=== PATIENT | male | born 1950 | race Caucasian/White ===

== ENCOUNTER 2022-04-29 07:07 | Day surgery (SDC) | payer MEDICARE, BC, SELFPAY ==
[2022-04-25 10:12] VITALS: BMI 22.4
[2022-04-29 07:37] VITALS: BP 117/69; PULSE 92; RESP 20; TEMP 36.9; O2SAT 99
--- NOTE | 2022-04-29 07:45 | ANES.PREANE2 ---
Pre-Anesthetic Assessment Height/Weight: Height 1.68 m Weight 63.049 kg Temp Pulse Resp BP Pulse Ox 98.5 F 92 20 H 117/69 99 04/29/22 07:37 04/29/22 07:37 04/29/22 07:37 04/29/22 07:37 04/29/22 07:37 Preop Diagnosis: h/o polyps Operation Date: 04/29/22 08:45 Proposed Procedures p Colonoscopy 01926,Z86.010(Not Applicable) - Joseph Howard MD Familial anesthetic complications: None Was Beta Viktor taken within 24 hours: N/A Was Clonidine taken within 24 hours: N/A Last intake: Intake Last Liquid Date 04/28/22 Last Liquid Time 20:00 Last Solid Date 04/27/22 Last Solid Time 18:00 Social No alcohol and No tobacco Exam alert, oriented x 3, clear to auscultation bilaterally and regular rate & rhythm diminished b/'l Airway Mallampati: Class II Dentition: full Pulmonary Chronic Obstructive Pulmonary Disease (2 L NC continously (stage IV per patient)) CV/HEM Hypertension None reported Hepatic None reported GI nausea last night, dry heaving - feels ok today Metabolic None reported Musc/skel None reported Neuropsych None reported Anesthetic Plan ASA status: 4 Risk of > 500 ml blood loss (7ml/kg in children): No Medications/Allergies Home Medications Medication Instructions Recorded Confirmed Last Taken Type acetylcysteine 200 mg/mL (20 %) 3 ml INHALATION Q4H 03/29/22 04/29/22 Unknown History solution albuterol sulfate 90 mcg/actuation 2 puff INHALATION QID 03/29/22 04/29/22 04/28/22 History aerosol inhaler (Ventolin HFA) fluticasone 500 mcg-salmeterol 50 1 inh INHALATION BID 03/29/22 04/29/22 04/29/22 History mcg/dose blistr powdr for inhalation (Advair Diskus) hydrochlorothiazide 25 mg tablet 25 mg PO DAILY 03/29/22 04/29/22 04/28/22 History lactulose 10 gram/15 mL oral 15 ml PO DAILY 03/29/22 04/29/22 04/27/22 History solution pravastatin 40 mg tablet 40 mg PO DAILY 03/29/22 04/29/22 04/28/22 History sertraline 50 mg tablet 50 mg PO DAILY 03/29/22 04/29/22 Unknown History guaifenesin 1,200 mg tablet, 1,200 mg PO Q12H 04/15/22 04/29/22 04/28/22 History extended release 12 hr (Mucinex) Allergies Allergy/AdvReac Type Severity Reaction Status Date / Time No Known Allergies Allergy Unverified 04/29/22 07:31 [facility] Anesthesia Medical History (Updated 04/15/22 @ 14:19 by Joseph Howard MD) COPD (chronic obstructive pulmonary disease) Essential hypertension Family History Mother No problems noted. Social History Smoking and tobacco status: former smoker Alcohol intake: never Data Anesthesia Cardiac Studies: No Data to Display
[2022-04-29] MEDS: sodium chloride 0.9% 1,000 ML 30 ML IV (07:50)
--- NOTE | 2022-04-29 08:08 | P.HP_ITS ---
Same Day Surgery H&P Indication for Procedure/HPI DATE OF PROCEDURE: April 29, 2022 CHIEF COMPLAINT/INDICATIONFOR SURGICAL PROCEDURE: Screening PREOP DIAGNOSIS: h/o polyps PLANNED PROCEDURE: Operation Date: 04/29/22 08:45 Proposed Procedures p Colonoscopy 46687,Z86.010(Not Applicable) - Joseph Howard MD Medications/Allergies* Home Medications Medication Instructions Recorded Confirmed Type acetylcysteine 200 mg/mL (20 %) 3 ml INHALATION Q4H 03/29/22 04/29/22 History solution albuterol sulfate 90 mcg/actuation 2 puff INHALATION QID 03/29/22 04/29/22 History aerosol inhaler (Ventolin HFA) fluticasone 500 mcg-salmeterol 50 1 inh INHALATION BID 03/29/22 04/29/22 History mcg/dose blistr powdr for inhalation (Advair Diskus) hydrochlorothiazide 25 mg tablet 25 mg PO DAILY 03/29/22 04/29/22 History lactulose 10 gram/15 mL oral 15 ml PO DAILY 03/29/22 04/29/22 History solution pravastatin 40 mg tablet 40 mg PO DAILY 03/29/22 04/29/22 History sertraline 50 mg tablet 50 mg PO DAILY 03/29/22 04/29/22 History guaifenesin 1,200 mg tablet, 1,200 mg PO Q12H 04/15/22 04/29/22 History extended release 12 hr (Mucinex) Allergies/Adverse Reactions Allergy/AdvReac Type Severity Reaction Status Date / Time No Known Allergies Allergy Unverified 04/29/22 07:31 Current Medications: Generic Name Dose Route Start Last Admin Trade Name Jeancarlosq PRN Reason Stop Dose Admin Sodium Chloride 1,000 mls @ 30 mls/hr 04/29/22 07:45 04/29/22 07:50 Sodium Chloride 0.9% IV 30 mls/hr .Q24H ADEN Administration Pertinent History/Comorbid Conditions* Medical History (Updated 04/15/22 @ 14:19 by Joseph Howard MD) COPD (chronic obstructive pulmonary disease) Essential hypertension Social History Smoking and tobacco status: former smoker Alcohol intake: never Pertinent Exam Findings alert, oriented x 3, clear to auscultation bilaterally, regular rate & rhythm, operative site marked and procedure specific exam findings Recommendations Surgery/Procedure today Coding Level of Care Code Acute [employer] for [employer]iju
[2022-04-29 09:19] VITALS: BP 95/63; PULSE 72; RESP 16; TEMP 36.6; O2SAT 100
[2022-04-29 09:27] VITALS: BP 101/64; PULSE 77; RESP 16; O2SAT 98
--- NOTE | 2022-04-29 14:08 | ANE.PACU2 ---
Inpatient post-anesthesia follow up: Airway intact: Yes Vital signs: Temperature 97.9 F Pulse Rate 77 Respiratory Rate 16 Blood Pressure 101/64 Pulse Oximetry 98 Oxygen Delivery Me thod Nasal Cannula Oxygen Flow Rate 2 Fraction of Inspir ed Oxygen Hydration adequate: Yes Nausea and vomiting: No Pain level: 1 Mental status: Baseline
== END 2022-04-29 09:53 | disposition home or self-care (01) ==
PROVIDERS: PCP Family Medicine; Visit Provider Internal Medicine
PROC: 0DJD8ZZ Inspection of Lower Intestinal Tract, Via Natural or Artificial Opening Endoscopic (ICD-10-PCS; CPT 45378; principal; 2022-04-29 08:45)
DX: Z12.11 Encounter for screening for malignant neoplasm of colon (principal); Z86.010 Personal history of colon polyps; D12.0 Benign neoplasm of cecum; J44.9 Chronic obstructive pulmonary disease, unspecified; I10 Essential (primary) hypertension; Z99.81 Dependence on supplemental oxygen
CPT/HCPCS: 45385; 88305; J2704; J7030